=== PATIENT | female | born 1990 | race Caucasian/White ===

== ENCOUNTER 2023-10-01 10:20 | Emergency (ER) | payer BC, SELFPAY ==
[2023-10-01 10:31] VITALS: BP 134/83
[2023-10-01 11:07] VITALS: BMI 23.9
--- NOTE | 2023-10-01 11:38 | ED.GENMED ---
History of Present Illness
General
Chief Complaint: Musculo-Skeletal Complaint
Source: patient
Exam Limitations: none
Time Seen by Provider: 10/01/23 10:58
Nursing documentation reviewed up to this point in time: agreed with
Travel History
Have you had any contact with someone who has COVID-19?: No
Do you have any symptoms of coronavirus? Fever > 100 degrees, chills, cough, shortness of breath, sore throat, loss of taste or smell, muscle aches, or headache?: No
History of Present Illness
History of Present Illness:
33-year-old female without significant past medical history presenting to the emergency department today with concerns of right-sided leg discomfort she is noticed some very slight swelling discomfort from her thigh to her calf region throughout the
morning denies specific injury denies any specific focal pain. Denies history of blood clots denies any estrogen product usage at any recent trauma surgery immobilization.
Past History
Past History
ED Past Medical History: None
Social History
Tobacco: Non-smoker
Alcohol: Occasional
Drug: None
Personal: Single
Review of Systems
Review of Systems
Allergies reviewed?: Yes
All Other Systems: ROS reviewed and negative except as documented in HPI and ROS
Phy Exam
Physical Exam
Physical Exam:
GENERAL: Alert , in no apparent distress
EYE: pupils equal and reactive
NECK: Supple, no significant adenopathy.
ENT: o/p clr, mmm.
CARDIAC: Regular rate and rhythm .
LUNGS: Clear breath sounds bilaterally, no acute respiratory distress, no wheezes/rales/rhonchi
ABDOMEN: Soft, without focal tenderness, no r/g, no cvat
NEUROLOGICAL: Alert and oriented, no focal neuro deficits
SKIN: Warm and dry, skin intact.
MUSCULOSKELETAL: Very subtle swelling to the right lower extremity from the thigh to the calf. No redness or warmth good range of motion throughout all joints of the lower extremity. No specific focal tenderness normal distal pulses and cap
refill, well perfused.
PSYCH: Normal and appropriate interaction.
Course
Orders/Labs/Results
Orders:
Orders
10/01/23 11:33
Venous Doppler Lwr Ext Rt [US [facility] Venous LOWER Ext RT] Urgent
Comment:
Reason For Exam: right leg sweliing pain
Vital Signs
Initial and Last Documented VS:
Initial Vital Signs
Temp Pulse Resp BP Pulse Ox
98.5 F 89 18 134/83 100
10/01/23 10:31 10/01/23 10:31 10/01/23 10:31 10/01/23 10:31 10/01/23 10:31
Last Documented Vital Signs
Temp Pulse Resp BP Pulse Ox
98.5 F 89 18 134/83 100
10/01/23 10:31 10/01/23 10:31 10/01/23 10:31 10/01/23 10:31 10/01/23 10:31
MDM/Problems Addressed
MDM/Problems Addressed:
33-year-old female presenting to the emergency department today with concerns of right leg swelling and discomfort starting this morning. No history of blood clot. No specific injury. No focal tenderness good range of motion strength of all
joints. Due to subtle swelling concern for DVT plan for ultrasound for further assessment. Ultrasound without signs of DVT. No signs of life threats no signs of infection at this point stable for outpatient management advised for close outpatient
follow-up. Return precautions given.
*Critical Care Note
Total Time (30-74mins, 75-104mins- exclusive of procedures): Not Applicable
ED Attending Note
-
Portions of this chart may have been created with voice recognition software.� Occasional wrong word or��sound alike� substitutions may have occurred due to the inherent limitations of voice recognition software.
Discharge Plan
Departure
Patient Disposition: Home (Routine Discharge)
Date of Disposition: 10/01/23
Time of Disposition: 13:45
Patient with high blood pressure during this ER visit?: No
Condition: Good
Covid-19: Not Applicable
Discharge Problem:
Leg pain
Instructions: Muscle and Bone Pain (DC)
Prescriptions:
No Action
ciprofloxacin HCl 500 MG tablet
500 mg PO BID Qty: 20 0RF
Referrals:
PRIVATE,PHYSICIAN [Family Provider] -
Activity Restrictions/Additional Instructions:
You came to the emergency department today with concerns of leg pain. You have an ultrasound without signs of blood clot. Please follow closely with your primary care doctor within 1 to 2 weeks if symptoms are ongoing. Return to the emergency
department for any worsening, new or concerning symptoms.
Interventions
Interventions:
*Risk Screen - Suicide Last Done: 10/01/23 11:01
*General Assessment Last Done: 10/01/23 11:02
*Neglect/Abuse Screening Last Done: 10/01/23 11:01
ED- Fall Risk Assessment Last Done: 10/01/23 11:02
*ED COVID-19 Vaccine History Last Done: 10/01/23 11:01
ED-Musculoskeletal Assessment Last Done: 10/01/23 11:06
[2023-10-01 13:51] VITALS: BP 119/71
== END 2023-10-01 13:52 | disposition home or self-care (01) ==
LOC: EMR 10:20
PROVIDERS: EMERGENCY PHYSICIAN Emergency Medicine
DX: M79.604 Pain in right leg (principal)
CPT/HCPCS: 99284; 93971